=== PATIENT | male | born 1995 | race Caucasian/White ===

== ENCOUNTER 2019-10-30 18:43 | Emergency (ER) | payer MEDICAID ==
[~2019-10-30] VITALS: Ht 172.7 cm; Wt 68.0 kg
[2019-10-30 18:53] VITALS: Ht 172.7 cm; Wt 68.0 kg
[2019-10-30 19:13] VITALS: BP 146/92
== END 2019-10-30 19:13 | disposition home or self-care (01) ==
LOC: ED 18:43
DX: S00.03XA Contusion of scalp, initial encounter (principal); S00.81XA Abrasion of other part of head, initial encounter; I10 Essential (primary) hypertension; X58.XXXA Exposure to other specified factors, initial encounter; Y93.89 Activity, other specified; Y92.89 Other specified places as the place of occurrence of the external cause; Y99.8 Other external cause status
CPT/HCPCS: 90715

== ENCOUNTER → 2019-10-30 19:27 | Emergency (ER) | payer OTHER | END | disposition other institution (70) | LOC: ED 19:27 | DX: Z02.89 Encounter for other administrative examinations (principal) ==